=== PATIENT | male | born 1955 | race African-American/Black ===

== ENCOUNTER 2022-08-30 08:02 | Emergency (ER) | payer MEDICARE, SELFPAY ==
[2022-08-30 08:05] VITALS: BP 152/97; PULSE 122; RESP 14; TEMP 36.4; O2SAT 98
--- NOTE | 2022-08-30 08:07 | ED.GENADULT ---
HPI - General Adult General Chief complaint: Unspecified Stated complaint: sore throat Time Seen by Provider: 08/30/22 08:06 History of Present Illness HPI narrative: Pt presents with sore throat for last 4 days. Pt says he did rounds outside last week and symptoms started afterward. Pt denies fever or cough or runny nose or body aches or vomiting or diarrhea. Review of Systems Review of Systems: All systems reviewed & are unremarkable except as noted in HPI and below Exam Const: General: cooperative, healthy appearing, comfortable and no acute distress Nutritional Appearance: average body habitus Orientation/consciousness: patient oriented x3 Limitations: no limitations HENMT: Mouth: Yes Normal oral and palatal mucosa present and Yes tongue normal Throat: posterior oropharynx abnormal erythema; no exudates Eyes: General: appearance normal, both eyes and all related structures Neck: Neck: normal visual inspection and full ROM Resp: Effort & Inspection: normal respiratory effort Auscultation: clear to auscultation bilaterally Cardio: Rate: regular rate Rhythm: regular rhythm Skin: General skin exam: normal color Neuro: General: patient oriented x3 Speech: normal speech Extrem: General: normal to inspection and full ROM Psych: Appearance: grossly normal Mental Status: mental status grossly normal Speech and movement: Normal speech and movement present Affect: normal affect Attitude: cooperative Thought process: Normal thought process present Thought content: Yes Normal thought content present Insight: Good insight present (Psych) Judgement: Good judgement present (Psych) Course Vital Signs Vital signs: Vital Signs Temperature 97.6 F 08/30/22 08:05 Pulse Rate 122 H 08/30/22 08:05 Respiratory Rate 14 08/30/22 08:05 Blood Pressure 152/97 H 08/30/22 08:05 Pulse Oximetry 98 08/30/22 08:05 Oxygen Delivery Room Air 08/30/22 08:05 Temperature 97.6 F 08/30/22 08:05 Pulse Rate 122 H 08/30/22 08:05 Respiratory Rate 14 08/30/22 08:05 Blood Pressure 152/97 H 08/30/22 08:05 Pulse Oximetry 98 08/30/22 08:05 Oxygen Delivery Room Air 08/30/22 08:05 Medical Decision Making [facility] Narrative Medical decision making narrative: pt has only complaint of sore throat, likely viral given lack of exudate or fever, has some mild erythema so will swab for strep and covid/flu/rsv Vital Signs Vital Signs: Vital Signs Temperature 97.6 F 08/30/22 08:05 Pulse Rate 122 H 08/30/22 08:05 Respiratory Rate 14 08/30/22 08:05 Blood Pressure 152/97 H 08/30/22 08:05 Pulse Oximetry 98 08/30/22 08:05 Oxygen Delivery Room Air 08/30/22 08:05 Temperature 97.6 F 08/30/22 08:05 Pulse Rate 122 H 08/30/22 08:05 Respiratory Rate 14 08/30/22 08:05 Blood Pressure 152/97 H 08/30/22 08:05 Pulse Oximetry 98 08/30/22 08:05 Oxygen Delivery Room Air 08/30/22 08:05 Lab Data Labs: Lab Results 08/30/22 08/30/22 Range/Units 08:11 08:11 Influenza A (RT-PCR) Negative (Negative) Influenza B (RT-PCR) Negative (Negative) RSV (RT-PCR) Negative (Negative) SARS-CoV-2 RNA (RT-PCR) Negative Group A Strep (PCR) Not detected (Negative) Discharge Plan Discharge Clinical Impression: Pharyngitis Patient Disposition: Home, Self-Care Condition: Stable Instructions: Antibiotic Form, Pharyngitis (ED), Viral Syndrome (ED) Follow-up/Referrals: Tory,Oleg Recinos MD [Primary Care Provider] -
[2022-08-30 08:44] LABS: Strep Group A RT-PCR NOT DETECTED (Negative)
[2022-08-30 08:55] LABS: Influenza A QL RT-PCR Negative (Negative); Influenza B QL RT-PCR Negative (Negative); RSV RNA, RT-PCR Negative (Negative); SARS-CoV-2 RNA PCR Negative
== END 2022-08-30 09:42 | disposition home or self-care (01) ==
PROVIDERS: Emergency Provider Emergency Medicine; PCP Family Medicine
DX: J02.9 Acute pharyngitis, unspecified (principal); Z20.822 Contact with and (suspected) exposure to COVID-19
CPT/HCPCS: 87637; 87651; 99283